=== PATIENT | male | born 1940 | race Caucasian/White ===

== ENCOUNTER 2017-12-29 13:01 | Emergency (ER) | payer MEDICARE, OTHER ==
[2017-12-29 13:19] VITALS: BP 189/84; PULSE 63; RESP 18; TEMP 97.2
--- NOTE | 2017-12-29 13:46 | ED ---
General Adult HPI - General Chief complaint: Dizziness Stated complaint: veritigo sent by [facility] Time Seen by Provider: 12/29/17 13:05 Source: patient, RN notes reviewed Mode of arrival: ambulatory Limitations: no limitations - History of Present Illness Initial comments: This is a 77-year-old male presents emergency Department complaining of vertigo- like symptoms this morning. Patient states she's had that in the past. Patient a but he went to [facility] because he was worried maybe he had an ear infection that caused it. Patient went to [facility] because he thought he might have an ear infection causing his vertigo. They sent the patient here. Patient states he had no chest pain no difficulty breathing no shortness of breath no palpitations. Patient denies any recent fever chills or cough per patient denies any ear pain or drainage. Patient denies any headache patient denies numbness weakness. Patient denies any lightheadedness or near syncopal episode. - Related Data Previous Rx's Medication Instructions Recorded Meclizine [Antivert] 25 mg PO TID #20 tab 12/29/17 Allergies Allergy/AdvReac Type Severity Reaction Status Date / Time No Known Allergies Allergy Verified 12/29/17 13:19 Review of Systems ROS Statement: Those systems with pertinent positive or pertinent negative responses have been documented in the HPI. ROS Other: All systems not noted in ROS Statement are negative. Past Medical History Past Medical History: Atrial Fibrillation History of Any Multi-Drug Resistant Organisms: None Reported Past Surgical History: Tonsillectomy Additional Past Surgical History / Comment(s): heart valve replaced 20yrs ago, hip replaced 8yrs ago Past Psychological History: No Psychological Hx Reported Smoking Status: Never smoker Past Alcohol Use History: None Reported Past Drug Use History: None Reported General Exam - General Exam Comments Initial Comments: GENERAL: Patient is well-developed and well-nourished. Patient is nontoxic and well- hydrated and is in no acute distress. ENT: Neck is soft and supple. No significant lymphadenopathy is noted. Oropharynx is clear. Moist mucous membranes. Neck has full range of motion without eliciting any pain. EYES: The sclera were anicteric and conjunctiva were pink and moist. Extraocular movements were intact and pupils were equal round and reactive to light. Eyelids were unremarkable. PULMONARY: Unlabored respirations. Good breath sounds bilaterally. No audible rales rhonchi or wheezing was noted. CARDIOVASCULAR: There is a regular rate and rhythm without any murmurs gallops or rubs. ABDOMEN: Soft and nontender with normal bowel sounds. No palpable organomegaly was noted. There is no palpable pulsatile mass. SKIN: Skin is clear with no lesions or rashes and otherwise unremarkable. NEUROLOGIC: Patient is alert and oriented x3. Cranial nerves II through XII are grossly intact. Motor and sensory are also intact. Normal speech, volume and content. Symmetrical smile. Cerebellar testing finger to nose is normal bilaterally MUSCULOSKELETAL: Normal extremities with adequate strength and full range of motion. No lower extremity swelling or edema. No calf tenderness. LYMPHATICS: No significant lymphadenopathy is noted PSYCHIATRIC: Normal psychiatric evaluation. Normal interpersonal interactions appears functionally intact in deals appropriately with others. No signs of depression. No signs of anxiety. Limitations: no limitations Course Vital Signs 12/29/17 13:15 Temperature 97.2 F L Pulse Rate 63 Respiratory 18 Rate Blood Pressure 189/84 O2 Sat by Pulse 97 Oximetry Medical Decision Making - Medical Decision Making I discussed the options with the patient is a doing a full workup but because the patient had a history of vertigo and A. fib I didn't think it was essential and patient agreed. Patient stated that if it got any worse he understood that he would need to come back. Patient's EKG did show atrial fibrillation 72 bpm QRS is under QT intervals 404 QTC is 442 per patient's EKG shows no ST segment elevation or depression or T wave abnormalities are noted. Disposition Clinical Impression: Vertigo Disposition: HOME SELF-CARE Instructions: Vertigo (ED) Prescriptions: Meclizine [Antivert] 25 mg PO TID #20 tab Is patient prescribed a controlled substance at d/c from ED?: No Referrals: Luis Felipe Carreno MD [Primary Care Provider] - 1-2 days Time of Disposition: 13:46
== END 2017-12-29 13:52 | disposition home or self-care (01) ==
LOC: EC 13:01
DX: R42 Dizziness and giddiness (principal); I48.91 Unspecified atrial fibrillation; Z95.2 Presence of prosthetic heart valve; Z96.649 Presence of unspecified artificial hip joint
CPT/HCPCS: 93005; 99284

== ENCOUNTER 2023-07-05 07:13 | Day surgery (SDC) | payer MEDICARE, OTHER ==
[2023-07-05] MEDS ORDERED: SODIUM CHLORIDE 0.9% 500 ML 500 ML IV ONE (07:22)
[2023-07-05 07:57] VITALS: RESP 16; TEMP 97.7
[2023-07-05] MEDS ORDERED: fentaNYL (PF) 50 MCG/ML 2 ML AMP ONE (08:48)
[2023-07-05] MEDS: BENZOCAINE SPRAY 1 CAN TOPICAL ONE ×2 (09:03→09:07)
[2023-07-05] MEDS ORDERED: fentaNYL (PF) 50 MCG/ML 2 ML AMP IVP ONE (09:09)
[2023-07-05] MEDS ORDERED: MIDAZOLAM 2 MG/2 ML VIAL IVP ONE (09:09)
[2023-07-05] MEDS ORDERED: APIXABAN 5 MG TAB PO SCH (09:30)
[2023-07-05] MEDS ORDERED: SODIUM CHLORIDE 0.9% 1,000 ML IV SCH (09:30)
--- NOTE | 2023-07-05 09:32 | P.PCN ---
Date of Procedure: 07/05/23 Description of Procedure: Indication: Mitral valve evaluation Procedure Description: After explaining the procedure to the patient, it's risk and complications, blood pressure, heart rate and O2 saturation were monitored. The throat was sprayed with Cetacaine. Patient received 2 mg intravenous Versed, 50 mcg intravenous fentanyl. The probe was introduced into the esophagus without difficulty. Images were obtained. Following that, the probe was removed. There was no immediate complication. Findings: Left atrial size is dilated, spontaneous contrast was noted. Left atrial appendage is normal. Left ventricular size and systolic function are normal. 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 Tricuspid valve and pulmonic valve appears to be normal. No pericardial effusion was noted. Descending thoracic aorta appears to be normal. Contrast bubble study revealed no shunting across the intra-atrial septum. Doppler: Pulse wave and color Doppler were obtained, an revealed moderate tricuspid reg urgitation, the estimated right ventricle systolic pressure is 56 mmHg. There was [id number] mitral regurgitation, the peak gradient across the mitral valve was 20 mmHg with a mean of 10 mmHg. There was no shunting across the intra-atrial septum. Conclusion: 1. Dilated left atrium with normal appearance of the left atrial appendage and spontaneous contrast 2. Normal ventricle size and systolic function 3. Evidence of mitral valve annuloplasty with mild to moderate mitral regurgitation and a mean gradient of 10 mmHg across the valve 4. Moderate tricuspid regurgitation with moderate pulmonary hypertension 5. No shunting across the intra-atrial septum
[2023-07-05 14:51] VITALS: BP 122/69; PULSE 94
[2023-07-05] MEDS ORDERED: ATORVASTATIN 20 MG TAB PO SCH (21:00)
[2023-07-06] MEDS ORDERED: ASPIRIN 81 MG PO SCH (09:00)
== END 2023-07-05 11:05 | disposition home or self-care (01) ==
LOC: CATHCVL 07:13
PROVIDERS: ATTEND Internal Medicine Interventional Cardiology
DX: I08.1 Rheumatic disorders of both mitral and tricuspid valves (principal); I27.20 Pulmonary hypertension, unspecified; I48.91 Unspecified atrial fibrillation; E78.5 Hyperlipidemia, unspecified; I10 Essential (primary) hypertension; F10.90 Alcohol use, unspecified, uncomplicated; Z98.890 Other specified postprocedural states; Z87.891 Personal history of nicotine dependence; Z79.01 Long term (current) use of anticoagulants; Z79.899 Other long term (current) drug therapy
CPT/HCPCS: 93312; 93320; 93325; J2250; J3010